=== PATIENT | male | born 1995 | race Caucasian/White ===

== ENCOUNTER 2017-07-01 23:07 | Emergency (ER) | payer SELFPAY ==
[~2017-07-01] VITALS: Ht 185.4 cm; Wt 97.0 kg
[2017-07-02 06:00] VITALS: BP 112/58
== END 2017-07-02 06:00 | disposition home or self-care (01) ==
LOC: ER 23:07
DX: J06.9 Acute upper respiratory infection, unspecified (principal); F32.9 Major depressive disorder, single episode, unspecified; F41.9 Anxiety disorder, unspecified; R45.851 Suicidal ideations; Z59.0 Homelessness
CPT/HCPCS: 99283